=== PATIENT | female | born 1980 | race African-American/Black ===

== ENCOUNTER 2017-02-13 20:19 | Inpatient (IN) | payer OTHER ==
[2017-02-13 20:41] VITALS: BMI 21.6
--- NOTE | 2017-02-13 20:51 | HP ---
CIWA Score - CIWA Score Nausea/Vomitin Muscle Tremors: 3 Anxiety: 3 Agitation: 1-Slight > Activity Paroxysmal Sweats: 3 Orientation: 0-Oriented Tacttile Disturbances: 1-Very Mild Itch/Numbness Auditory Disturbances: 0-None Visual Disturbances: 0-None Headache: 1-Very Mild CIWA-Ar Total Score: 15 Admission ROS [facility] - HPI Chief Complaint: WITHDRAWAL SYMPTOMS Allergies/Adverse Reactions: Allergies Allergy/AdvReac Type Severity Reaction Status Date / Time Penicillins Allergy Verified 02/13/17 20:48 History of Present Illness: 36 Y.O. WOMAN WITH AN EXTENSIVE HISTORY OF ALCOHOL DEPENDENCE IS SEEKING DETOX. SHE REPORTS SHE COMPLETED DETOX SEVERAL YEARS AGO AT ANOTHER FACILITY AND DOES NOT HAVE A SIGNIFICANT PERIOD OF SOBRIETY. Exam Limitations: No Limitations - Ebola screening Have you traveled outside of the country in the last 21 days: No Have you had contact with anyone from an Ebola affected area: No Have you been sick,other than usual withdrawal symptoms: No Do you have a fever: No - Review of Systems Constitutional: Chills, Loss of Appetite EENT: reports: Blurred Vision, Double Vision, Tearing, Nose Congestion Respiratory: reports: Wheezing Cardiac: reports: No Symptoms Reported GI: reports: Nausea : reports: No Symptoms Reported Musculoskeletal: reports: Back Pain Integumentary: reports: Bruising Neuro: reports: Seizure, Tremors Endocrine: reports: No Symptoms Reported Hematology: reports: Anemia (YOLANDA) Psychiatric: reports: Orientated x3, Anxious, Depressed Other Systems: Reviewed and Negative Patient History - Patient Medical History Hx Anemia: Yes (YOLANDA ) Hx Asthma: Yes (ALBUTERAL ) Hx Chronic Obstructive Pulmonary Disease (COPD): No Hx Cancer: No Hx Cardiac Disorders: Yes (H/O PALPITATIONS ) Hx Congestive Heart Failure: No Hx Hypertension: Yes Hx Hypercholesterolemia: No Hx Pacemaker: No HX Cerebrovascular Accident: Yes (09/2016) Hx Seizures: Yes (H/O EPILEPTIC SZ: LAST SZ 09/2016) Hx Dementia: No Hx Diabetes: No Hx Gastrointestinal Disorders: Yes (GERD ) Hx Liver Disease: No Hx Genitourinary Disorders: No Hx Sexually Transmitted Disorders: No Hx Renal Disease (ESRD): No Hx Thyroid Disease: No Hx Human Immunodeficiency Virus (HIV): No Hx Hepatitis C: No Hx Depression: Yes Hx Suicide Attempt: No Hx Bipolar Disorder: Yes Hx Schizophrenia: No - Patient Surgical History Past Surgical History: No - PPD History Previous Implant?: Yes Documented Results: Negative w/o proof PPD to be Administered?: Yes - Reproductive History Patient is a Female of Child Bearing Age (11 -55 yrs old): Yes Last Menstrual Period: 01/16/17 Patient : No - Smoking Cessation Smoking history: Smoker current status UNK Have you smoked in the past 12 months: No Aproximately how many cigarettes per day: 5 Hx Chewing Tobacco Use: No Initiated information on smoking cessation: Yes 'Breaking Loose' booklet given: 02/13/17 - Substance & Tx. History Hx Alcohol Use: Yes Hx Substance Use: No Substance Use Type: Alcohol Hx Substance Use Treatment: Yes (DETOX SEVERAL YEARS AGO AT [facility]; REPORTED NO REHAB EVER) - Substances Abused Alcohol Route: Oral Frequency: Daily Amount used: 2 20OZ CAN OF BEER AND 1 PINT OF LIQUOR Age of first use: 14 Date of Last Use: 02/12/17 Family Disease History - Family Disease History Family Disease History: Diabetes: Father, CA: Grandparent, Mother (CERVICAL ) Admission Physical Exam [facility] - Vital Signs Vital Signs: Vital Signs - 24 hr 02/13/17 20:38 Temperature 97.5 F L Pulse Rate 77 Respiratory 18 Rate Blood Pressure 138/93 - Physical General Appearance: Yes: Sweating, Anxious HEENTM: Yes: Hearing grossly Normal, Normocephalic, Normal Voice Respiratory: Yes: No Respiratory Distress, No Accessory Muscle Use, Wheezing Neck: Yes: No masses,lesions,Nodules, Trachea in good position Breast: Yes: Breast Exam Deferred Cardiology: Yes: Regular Rhythm, Regular Rate Abdominal: Yes: Normal Bowel Sounds, Non Tender, Flat, Soft Genitourinary: Yes: Vaginal Discharge Back: Yes: Normal Inspection Musculoskeletal: Yes: full range of Motion, Gait Steady Extremities: Yes: Normal Capillary Refill, Normal Inspection, Normal Range of Motion, Non-Tender Neurological: Yes: Alert, Normal Mood/Affect, Normal Response Integumentary: Yes: Normal Color, Dry, Warm Lymphatic: Yes: Within Normal Limits - Diagnostic (1) Alcohol dependence with uncomplicated withdrawal Current Visit: Yes Status: Chronic (2) Seizure Current Visit: Yes Status: Chronic (3) Hypertension Current Visit: Yes Status: Chronic (4) Scabies Current Visit: Yes Status: Acute (5) Asthma Current Visit: Yes Status: Chronic (6) Nicotine dependence Current Visit: Yes Status: Chronic (7) BV (bacterial vaginosis) Current Visit: Yes Status: Acute Cleared for Admission [facility] - Detox or Rehab [facility] Level of Care: Medically Managed Detox Regimen/Protocol: Librium [facility] Breath Alcohol Content Breath Alcohol Content: 0 Urine Pregancy Test - Result Urine Test Results: Negative- NO Line Present Urine Drug Screen - Results Drug Screen Negative: No Urine Drug Screen Results: HUY-Cocaine, BZO-Benzodiazepines
[2017-02-13] MEDS ORDERED: NICOTINE POLACRILEX 2 MG GUM BC PRN (21:09)
[2017-02-13] MEDS ORDERED: MAGNESIUM HYDROX 2400MG/30ML ORAL SUSPENSION 30 ML CUP PO PRN (21:09)
[2017-02-13] MEDS ORDERED: chlordiazePOXIDE HCL 25 MG CAPSULE PO PRN (21:09)
[2017-02-13] MEDS ORDERED: P-EPHED 60MG/TRIPROLIDI 2.5MG TABLET PO PRN (21:09)
[2017-02-13] MEDS ORDERED: guaiFENesin/D-METHORPHAN HB 10 ML UNIT-DOSE CUPS PO PRN (21:09)
[2017-02-13] MEDS ORDERED: MENTHOL/PHENOL 1 EACH UD MM PRN (21:09)
[2017-02-13] MEDS ORDERED: hydrOXYzine PAMOATE 50 MG CAPSULE (FP) PO PRN (21:09)
[2017-02-13] MEDS ORDERED: MAG HYDROX/AL HYDROX/SIMETH 30 ML UNIT-DOSE CUP PO PRN (21:09)
[2017-02-13] MEDS ORDERED: LOPERAMIDE HCL 2 MG CAPSULE PO PRN (21:09)
[2017-02-13] MEDS ORDERED: MAGNESIUM CITRATE 300 ML BOTTLE PO PRN (21:09)
[2017-02-13] MEDS ORDERED: PERMETHRIN 5% TOPICAL CREAM 60 GM TUBE TP ONE (21:12)
[2017-02-13] MEDS: levETIRAcetam 500 MG TABLET (FP) PO SCH (22:41)
[2017-02-13] MEDS: chlordiazePOXIDE HCL 25 MG CAPSULE PO ONE ×2 (22:42)
[2017-02-13] MEDS: THIAMINE HCL 100 MG TABLET (FP) PO SCH (22:45)
[2017-02-13] MEDS: diphenhydrAMINE HCL 50 MG CAPSULE PO PRN (22:47)
[2017-02-13] MEDS: CLINDAMYCIN HCL 150 MG CAPSULE (FP) PO SCH (22:57)
[2017-02-13] MEDS: metroNIDAZOLE 0.75% VAGINAL GEL 70 GM TUBE VG SCH (22:59)
[2017-02-13] MEDS: chlordiazePOXIDE HCL 25 MG CAPSULE PO SCH (23:03)
[2017-02-14 00:40] LABS: URINE APPEARANCE CLOUDY; URINE BILIRUBIN NEGATIVE (NEGATIVE); URINE BLOOD NEGATIVE (NEGATIVE); URINE COLOR YELLOW; URINE GLUCOSE (UA) NEGATIVE (NEGATIVE); URINE KETONE NEGATIVE (NEGATIVE); URINE LEUK ESTERASE TRACE (NEGATIVE); URINE NITRITE NEGATIVE (NEGATIVE); URINE PROTEIN NEGATIVE (NEGATIVE); URINE UROBILINOGEN NEGATIVE mg/dL (0.2-1.0)
[2017-02-14 01:01] LABS: URINE MUCUS FEW; URINE RBC 3 /hpf (0-3); URINE WBC 6 /hpf (3-5)
[2017-02-14] MEDS: chlordiazePOXIDE HCL 25 MG CAPSULE PO SCH ×4 (06:02→22:27)
[2017-02-14] MEDS: CLINDAMYCIN HCL 150 MG CAPSULE (FP) PO SCH ×3 (06:03→22:23)
[2017-02-14] MEDS: IBUPROFEN 400 MG TABLET (FP) PO PRN ×2 (06:03→17:12)
--- NOTE | 2017-02-14 09:20 | EKG ---
Test Reason : Blood Pressure : / mmHG Vent. Rate : 074 BPM Atrial Rate : 074 BPM P-R Int : 150 ms QRS Dur : 088 ms QT Int : 430 ms P-R-T Axes : 030 030 -06 degrees QTc Int : 477 ms NORMAL SINUS RHYTHM SEPTAL INFARCT , AGE UNDETERMINED NON-SPECIFIC INTRA-VENTRICULAR CONDUCTION DELAY ABNORMAL ECG NO PREVIOUS ECGS AVAILABLE Confirmed by BENI PEARSON MD ([id number]) on 02/14/2017 9:19:48 AM Referred By: Confirmed By:BENI PEARSON MD
[2017-02-14 10:25] LABS: MCH 28.4 pg (25.7-33.7); MCHC 32.4 g/dl (32.0-36.0); MEAN CELL VOLUME 87.7 fl (80-96); PLATELET COUNT 209 K/MM3 (134-434); RDW 17.9 % (11.6-15.6)
[2017-02-14] MEDS: PRENATAL VITAMINS W/ FOLIC ACID TABLET (FP) PO SCH (10:56)
[2017-02-14] MEDS: levETIRAcetam 500 MG TABLET (FP) PO SCH ×2 (10:56→22:23)
[2017-02-14 11:01] LABS: ALBUMIN 3.4 g/dl (3.4-5.0); ALK PHOS 37 U/L (45-117); BILIRUBIN,TOTAL 1.5 mg/dL (0.2-1.0); CALCIUM 8.7 mg/dL (8.5-10.1); CO2 27 mmol/L (21-32); CREATININE 0.9 mg/dL (0.55-1.02); GLUCOSE,RANDOM 90 mg/dL (74-106); SGOT/AST 16 U/L (15-37); SGPT/ALT 20 U/L (12-78); TOT PROT 7.2 g/dl (6.4-8.2)
--- NOTE | 2017-02-14 11:21 | PN ---
[facility] CIWA - CIWA Score Nausea/Vomitin-No Nausea/No Vomiting Muscle Tremors: 4-Moderate,w/Arms Extend Anxiety: 3 Agitation: 4-Moderately Restless Paroxysmal Sweats: 3 Orientation: 0-Oriented Tacttile Disturbances: 0-None Auditory Disturbances: 0-None Visual Disturbances: 0-None Headache: 0-None Present CIWA-Ar Total Score: 14 BHS Progress Note (SOAP) Subjective: shakes sweats interrupted sleep agitation anxiety Objective: 02/14/17 11:18 Vital Signs Temperature 97.3 F L 02/14/17 10:00 Pulse Rate 97 H 02/14/17 10:00 Respiratory Rate 18 02/14/17 10:00 Blood Pressure 122/66 02/14/17 10:00 O2 Sat by Pulse Oximetry (%) Laboratory Tests 02/14/17 02/14/17 02/14/17 00:01 07:00 07:00 WBC 9.0 RBC 4.36 Hgb 12.4 Hct 38.2 MCV 87.7 MCH 28.4 MCHC 32.4 RDW 17.9 H Plt Count 209 MPV 10.0 Sodium 135 L Potassium 3.9 Chloride 101 Carbon Dioxide 27 BUN 12 Creatinine 0.9 Creat Clearance w eGFR > 60 Random Glucose 90 Calcium 8.7 Total Bilirubin 1.5 H AST 16 ALT 20 Alkaline Phosphatase 37 L Total Protein 7.2 Albumin 3.4 Urine Color Yellow Urine Appearance Cloudy Urine pH 6.0 Ur Specific [place] 1.025 Urine Protein Negative Urine Glucose (UA) Negative Urine Ketones Negative Urine Blood Negative Urine Nitrite Negative Urine Bilirubin Negative Urine Urobilinogen Negative Ur Leukocyte Esterase Trace Urine RBC 3 Urine WBC 6 Ur Epithelial Cells Few Urine Mucus Few awake/alert ambulating no acute distress Assessment: 02/14/17 11:20 withdrawal sx Plan: continue detox increase fluids
[2017-02-14 12:18] LABS: HIV 1 & 2 AB NEGATIVE; HIV 1 AGp24 NEGATIVE
[2017-02-14] MEDS: ACETAMINOPHEN 325 MG TABLET (FP) PO PRN ×3 (13:27→22:24)
--- NOTE | 2017-02-14 13:41 | CONSULT ---
[facility] Psychiatric Consult - Data Date of interview: 02/14/17 Admission source: [facility] Identifying data: Ptient refused psychiatric evaluation." I have fever.Icannot talk.Besides I don't have psychiatric problems.Nursing staff is made aware.
[2017-02-14] MEDS: THIAMINE HCL 100 MG TABLET (FP) PO SCH (22:23)
[2017-02-14] MEDS: metroNIDAZOLE 0.75% VAGINAL GEL 70 GM TUBE VG SCH (22:23)
[2017-02-15] MEDS: CLINDAMYCIN HCL 150 MG CAPSULE (FP) PO SCH ×3 (05:53→22:24)
[2017-02-15] MEDS: chlordiazePOXIDE HCL 25 MG CAPSULE PO SCH ×3 (05:54→17:41)
[2017-02-15] MEDS: levETIRAcetam 500 MG TABLET (FP) PO SCH ×2 (10:36→22:24)
[2017-02-15] MEDS: PRENATAL VITAMINS W/ FOLIC ACID TABLET (FP) PO SCH (10:36)
[2017-02-15] MEDS: ALBUTEROL SO4 6.7 GM HFA INHALER IH PRN ×2 (10:37→16:03)
--- NOTE | 2017-02-15 12:03 | PN ---
S CIWA - CIWA Score Nausea/Vomitin Muscle Tremors: 4-Moderate,w/Arms Extend Anxiety: 4-Mod. Anxious/Guarded Agitation: 4-Moderately Restless Paroxysmal Sweats: 3 Orientation: 0-Oriented Tacttile Disturbances: 0-None Auditory Disturbances: 1-Very Mild Visual Disturbances: 0-None Headache: 1-Very Mild CIWA-Ar Total Score: 20 BHS Progress Note (SOAP) Subjective: nausea, sweats, interrupted sleep, anxiety, tremors Objective: 02/15/17 12:02 Vital Signs - 8 hr 02/15/17 02/15/17 06:00 10:20 Temperature 98.1 F 97.7 F Pulse Rate 78 90 Respiratory 18 18 Rate Blood Pressure 114/71 106/78 Laboratory Tests 02/13/17 02/14/17 02/14/17 07:00 00:01 07:00 WBC 9.0 RBC 4.36 Hgb 12.4 Hct 38.2 MCV 87.7 MCH 28.4 MCHC 32.4 RDW 17.9 H Plt Count 209 MPV 10.0 Sodium Potassium Chloride Carbon Dioxide Anion Gap BUN Creatinine Creat Clearance w eGFR Random Glucose Calcium Total Bilirubin AST ALT Alkaline Phosphatase Total Protein Albumin Urine Color Yellow Urine Appearance Cloudy Urine pH 6.0 Ur Specific [place] 1.025 Urine Protein Negative Urine Glucose (UA) Negative Urine Ketones Negative Urine Blood Negative Urine Nitrite Negative Urine Bilirubin Negative Urine Urobilinogen Negative Ur Leukocyte Esterase Trace Urine RBC 3 Urine WBC 6 Ur Epithelial Cells Few Urine Mucus Few RPR Titer Hepatitis C Antibody 0.4 HIV 1&2 Antibody Screen HIV P24 Antigen 02/14/17 02/14/17 02/14/17 07:00 07:00 07:00 WBC RBC Hgb Hct MCV MCH MCHC RDW Plt Count MPV Sodium 135 L Potassium 3.9 Chloride 101 Carbon Dioxide 27 Anion Gap Y BUN 12 Creatinine 0.9 Creat Clearance w eGFR > 60 Random Glucose 90 Calcium 8.7 Total Bilirubin 1.5 H AST 16 ALT 20 Alkaline Phosphatase 37 L Total Protein 7.2 Albumin 3.4 Urine Color Urine Appearance Urine pH Ur Specific [place] Urine Protein Urine Glucose (UA) Urine Ketones Urine Blood Urine Nitrite Urine Bilirubin Urine Urobilinogen Ur Leukocyte Esterase Urine RBC Urine WBC Ur Epithelial Cells Urine Mucus RPR Titer Nonreactive Hepatitis C Antibody HIV 1&2 Antibody Screen Negative HIV P24 Antigen Negative Assessment: 02/15/17 12:03 withdrawal sx Plan: cont detox, fluids
[2017-02-15] MEDS: metroNIDAZOLE 0.75% VAGINAL GEL 70 GM TUBE VG SCH (22:24)
[2017-02-15] MEDS: chlordiazePOXIDE 5 MG CAPSULE PO SCH (22:24)
[2017-02-15] MEDS: THIAMINE HCL 100 MG TABLET (FP) PO SCH (22:24)
[2017-02-15] MEDS: diphenhydrAMINE HCL 50 MG CAPSULE PO PRN (22:25)
[2017-02-16] MEDS: CLINDAMYCIN HCL 150 MG CAPSULE (FP) PO SCH ×3 (05:34→22:44)
[2017-02-16] MEDS: chlordiazePOXIDE 5 MG CAPSULE PO SCH ×3 (05:34→17:58)
[2017-02-16] MEDS: PRENATAL VITAMINS W/ FOLIC ACID TABLET (FP) PO SCH (10:40)
[2017-02-16] MEDS: levETIRAcetam 500 MG TABLET (FP) PO SCH ×2 (10:40→22:44)
--- NOTE | 2017-02-16 10:40 | PN ---
BHS Progress Note (SOAP) Subjective: nause, sweats, interrupted sleep, anxiety, tremors Objective: 02/16/17 10:39 Vital Signs - 8 hr 02/16/17 02/16/17 03:30 06:29 Temperature 96.8 F L Pulse Rate 63 Respiratory 18 16 Rate Blood Pressure 97/64 Laboratory Tests 02/13/17 02/14/17 02/14/17 07:00 00:01 07:00 WBC 9.0 RBC 4.36 Hgb 12.4 Hct 38.2 MCV 87.7 MCH 28.4 MCHC 32.4 RDW 17.9 H Plt Count 209 MPV 10.0 Sodium Potassium Chloride Carbon Dioxide Anion Gap BUN Creatinine Creat Clearance w eGFR Random Glucose Calcium Total Bilirubin AST ALT Alkaline Phosphatase Total Protein Albumin Urine Color Yellow Urine Appearance Cloudy Urine pH 6.0 Ur Specific [place] 1.025 Urine Protein Negative Urine Glucose (UA) Negative Urine Ketones Negative Urine Blood Negative Urine Nitrite Negative Urine Bilirubin Negative Urine Urobilinogen Negative Ur Leukocyte Esterase Trace Urine RBC 3 Urine WBC 6 Ur Epithelial Cells Few Urine Mucus Few RPR Titer Hepatitis C Antibody 0.4 HIV 1&2 Antibody Screen HIV P24 Antigen 02/14/17 02/14/17 02/14/17 07:00 07:00 07:00 WBC RBC Hgb Hct MCV MCH MCHC RDW Plt Count MPV Sodium 135 L Potassium 3.9 Chloride 101 Carbon Dioxide 27 Anion Gap Y BUN 12 Creatinine 0.9 Creat Clearance w eGFR > 60 Random Glucose 90 Calcium 8.7 Total Bilirubin 1.5 H AST 16 ALT 20 Alkaline Phosphatase 37 L Total Protein 7.2 Albumin 3.4 Urine Color Urine Appearance Urine pH Ur Specific [place] Urine Protein Urine Glucose (UA) Urine Ketones Urine Blood Urine Nitrite Urine Bilirubin Urine Urobilinogen Ur Leukocyte Esterase Urine RBC Urine WBC Ur Epithelial Cells Urine Mucus RPR Titer Nonreactive Hepatitis C Antibody HIV 1&2 Antibody Screen Negative HIV P24 Antigen Negative Assessment: 02/16/17 10:40 withdrawal sx Plan: cont detox
[2017-02-16] MEDS: metroNIDAZOLE 0.75% VAGINAL GEL 70 GM TUBE VG SCH (22:43)
[2017-02-16] MEDS: chlordiazePOXIDE HCL 10 MG CAPSULE PO SCH (22:44)
[2017-02-16] MEDS: THIAMINE HCL 100 MG TABLET (FP) PO SCH (22:44)
[2017-02-17] MEDS: chlordiazePOXIDE HCL 10 MG CAPSULE PO SCH (05:54)
[2017-02-17] MEDS: CLINDAMYCIN HCL 150 MG CAPSULE (FP) PO SCH (05:54)
[2017-02-17 06:49] VITALS: BP 100/57; PULSE 72; TEMP 97
[2017-02-17] MEDS: PRENATAL VITAMINS W/ FOLIC ACID TABLET (FP) PO SCH (09:22)
[2017-02-17] MEDS: levETIRAcetam 500 MG TABLET (FP) PO SCH (09:22)
--- NOTE | 2017-02-17 09:37 | DS ---
[facility] Detox Discharge Summary Admission Date: 02/13/17 Discharge Date: 02/17/17 - History Present History: Alcohol Dependence Pertinent Past History: asthma, scabies, bacteerial vaginosis, seizures - Physical Exam Results Vital Signs: Vital Signs Temperature 97 F L 02/17/17 06:48 Pulse Rate 72 02/17/17 06:48 Respiratory Rate 18 02/17/17 06:48 Blood Pressure 100/57 02/17/17 06:48 O2 Sat by Pulse Oximetry (%) Laboratory Tests 02/13/17 02/14/17 02/14/17 07:00 00:01 07:00 WBC 9.0 RBC 4.36 Hgb 12.4 Hct 38.2 MCV 87.7 MCH 28.4 MCHC 32.4 RDW 17.9 H Plt Count 209 MPV 10.0 Sodium Potassium Chloride Carbon Dioxide Anion Gap BUN Creatinine Creat Clearance w eGFR Random Glucose Calcium Total Bilirubin AST ALT Alkaline Phosphatase Total Protein Albumin Urine Color Yellow Urine Appearance Cloudy Urine pH 6.0 Ur Specific [place] 1.025 Urine Protein Negative Urine Glucose (UA) Negative Urine Ketones Negative Urine Blood Negative Urine Nitrite Negative Urine Bilirubin Negative Urine Urobilinogen Negative Ur Leukocyte Esterase Trace Urine RBC 3 Urine WBC 6 Ur Epithelial Cells Few Urine Mucus Few RPR Titer Hepatitis C Antibody 0.4 HIV 1&2 Antibody Screen HIV P24 Antigen 02/14/17 02/14/17 02/14/17 07:00 07:00 07:00 WBC RBC Hgb Hct MCV MCH MCHC RDW Plt Count MPV Sodium 135 L Potassium 3.9 Chloride 101 Carbon Dioxide 27 Anion Gap Y BUN 12 Creatinine 0.9 Creat Clearance w eGFR > 60 Random Glucose 90 Calcium 8.7 Total Bilirubin 1.5 H AST 16 ALT 20 Alkaline Phosphatase 37 L Total Protein 7.2 Albumin 3.4 Urine Color Urine Appearance Urine pH Ur Specific [place] Urine Protein Urine Glucose (UA) Urine Ketones Urine Blood Urine Nitrite Urine Bilirubin Urine Urobilinogen Ur Leukocyte Esterase Urine RBC Urine WBC Ur Epithelial Cells Urine Mucus RPR Titer Nonreactive Hepatitis C Antibody HIV 1&2 Antibody Screen Negative HIV P24 Antigen Negative Pertinent Admission Physical Exam Findings: withdrawal sx - Treatment Hospital Course: Detox Protocol Followed, Detoxed Safely, Responded well, Discharged Condition Good, Rehab Referral Accepted Patient has Accepted a Rehab Referral to: Yes - Medication Discharge Medications: Ambulatory Orders Metronidazole 0.75% Gel [Metrogel 0.75% Gel -] 1 applic TP HS 02/13/17 Albuterol Sulfate Inhaler - [Ventolin HFA Inhaler -] 2 inh PO Q6H #1 inh Clindamycin [Cleocin -] 300 mg PO TID 7 Days MDD 3 02/17/17 Diphenhydramine [Benadryl Capsule -] 50 mg PO HSMR1 PRN #30 cap MDD 1 02/17/17 Levetiracetam [Keppra -] 500 mg PO BID #30 tab MDD 2 02/17/17 Permethrin 5% Topical Cream [Elimite -] 1 applic TP ONCE #1 tube MDD 1 02/17/17 - Diagnosis (1) BV (bacterial vaginosis) Current Visit: Yes Status: Acute (2) Scabies Current Visit: Yes Status: Acute (3) Alcohol dependence with uncomplicated withdrawal Current Visit: Yes Status: Chronic (4) Asthma Current Visit: Yes Status: Chronic Qualifiers: Asthma severity: mild intermittent (5) Nicotine dependence Current Visit: Yes Status: Chronic Qualifiers: Nicotine product type: cigarettes Substance use status: uncomplicated Qualified Code(s): F17.210 - Nicotine dependence, cigarettes, uncomplicated (6) Seizure Current Visit: Yes Status: Chronic - AMA Did Patient Leave Against Medical Advice: No
== END 2017-02-17 09:15 | disposition home or self-care (01) | DRG 775 ==
LOC: YASAS 20:19 → Y6N 21:10
PROVIDERS: ADMIT Internal Medicine Addiction Medicine; ATTEND Internal Medicine Addiction Medicine
PROC: HZ2ZZZZ Detoxification Services for Substance Abuse Treatment (ICD-10-PCS; principal; 2017-02-13)
DX: F10.230 Alcohol dependence with withdrawal, uncomplicated (principal); F17.210 Nicotine dependence, cigarettes, uncomplicated; I10 Essential (primary) hypertension; N76.0 Acute vaginitis; B96.89 Other specified bacterial agents as the cause of diseases classified elsewhere; B86 Scabies; D50.9 Iron deficiency anemia, unspecified; J45.20 Mild intermittent asthma, uncomplicated; G40.909 Epilepsy, unspecified, not intractable, without status epilepticus; Z86.73 Personal history of transient ischemic attack (TIA), and cerebral infarction without residual deficits; Z88.0 Allergy status to penicillin
CPT/HCPCS: 36415; 80053; 81003; 81015; 85027; 86593; 86803; 87389; 93005; 93010

== ENCOUNTER 2019-02-03 12:14 | Inpatient (IN) | payer OTHER ==
[2019-02-03 13:37] VITALS: BMI 23.3
--- NOTE | 2019-02-03 16:45 | HP ---
CIWA Score Nausea/Vomitin-Mild Nausea/No Vomiting Muscle Tremors: 4-Moderate,w/Arms Extend Anxiety: 2 Agitation: 0-Normal Activity Paroxysmal Sweats: No Perspiration Orientation: 0-Oriented Tacttile Disturbances: 3-Moderate Itch/Numb/Burn Auditory Disturbances: 0-None Visual Disturbances: 0-None Headache: 3-Moderate CIWA-Ar Total Score: 13 - Admission Criteria [facility] Guidelines: Admission for Medically Managed Detox: Requires at least one of the followin. CIWA greater than 12 2. Seizures within the past 24 hours 3. Delirium tremens within the past 24 hours 4. Hallucinations within the past 24 hours 5. Acute intervention needed for co occurring medical disorder 6. Acute intervention needed for co occurring psychiatric disorder 7. Severe withdrawal that cannot be handled at a lower level of care (continued vomiting, continued diarrhea, abnormal vital signs) requiring intravenous medication and/or fluids 8. Admission ROS [facility] Chief Complaint: detox from alcohol Allergies/Adverse Reactions: Allergies Allergy/AdvReac Type Severity Reaction Status Date / Time Penicillins Allergy Verified 02/03/19 13:27 History of Present Illness: Ms. Bhagat is a 38yo female with alcohol use disorder, cocaine use disorder, and seizures who presents for detox from alcohol. Pt reports drinking 1 pint of liquor daily for 16 years. Her last drink was yesterday afternoon. She reports hx of seizures (has seizure disorder) but denies hx of blackouts. She states her longest period of sobriety was 9 months and she relapsed in February 2018. She also smokes 3 bags/day of cocaine for the last 4 years. Last use was yesterday. She smokes 2 cigarettes/day. PMH: alcohol use disorder, cocaine use disorder, and seizures meds: keppra allergies: PCN- rash surgical hx: none family hx: mom-cancer, denies family hx of substance use disorders social: lives alone in [facility] in [place]; currently unemployed - Ebola screening Have you traveled outside of the country in the last 21 days: No Have you had contact with anyone from an Ebola affected area: No - Review of Systems Constitutional: Chills EENT: reports: No Symptoms Reported Respiratory: denies: Cough, Shortness of Breath Cardiac: denies: Chest Pain GI: reports: Diarrhea. denies: Nausea, Vomiting : reports: No Symptoms Reported Musculoskeletal: reports: No Symptoms Reported Integumentary: reports: Rash Neuro: denies: Headache, Dizziness Hematology: reports: No Symptoms Reported Psychiatric: reports: Judgement Intact, Mood/Affect Appropiate, Orientated x3 Patient History - Patient Medical History Hx Anemia: Yes (YOLANDA ) Hx Asthma: Yes (ALBUTERAL ) Hx Chronic Obstructive Pulmonary Disease (COPD): No Hx Cancer: No Hx Cardiac Disorders: Yes (H/O PALPITATIONS ) Hx Congestive Heart Failure: No Hx Hypertension: Yes Hx Hypercholesterolemia: No Hx Pacemaker: No HX Cerebrovascular Accident: Yes (09/2016) Hx Seizures: Yes (H/O EPILEPTIC SZ: LAST SZ 09/2016) Hx Dementia: No Hx Diabetes: No Hx Gastrointestinal Disorders: Yes (GERD ) Hx Liver Disease: No Hx Genitourinary Disorders: No Hx Sexually Transmitted Disorders: No Hx Renal Disease (ESRD): No Hx Thyroid Disease: No Hx Human Immunodeficiency Virus (HIV): No Hx Hepatitis C: No Hx Depression: Yes Hx Suicide Attempt: No Hx Bipolar Disorder: Yes Hx Schizophrenia: No - Patient Surgical History Past Surgical History: No Hx Neurologic Surgery: No Hx Cataract Extraction: No Hx Cardiac Surgery: No Hx Lung Surgery: No Hx Breast Surgery: No Hx Breast Biopsy: No Hx Abdominal Surgery: No Hx Appendectomy: No Hx Cholecystectomy: No Hx Genitourinary Surgery: No Hx Section: No Hx Orthopedic Surgery: No Anesthesia Reaction: No - PPD History Date: 02/15/17 - Reproductive History Last Menstrual Period: 01/16/17 - Smoking Cessation Smoking history: Current every day smoker Have you smoked in the past 12 months: Yes Aproximately how many cigarettes per day: 2 Hx Chewing Tobacco Use: No Initiated information on smoking cessation: Yes 'Breaking Loose' booklet given: 02/03/19 - Substances abused Alcohol Substance route: Oral Frequency: Daily Amount used: 3 BOTTLES OF VODKA, 2 CANS OF BEER Age of first use: 14 Date of last use: 02/02/19 Cocaine Substance route: Smoking Frequency: Daily Amount used: 3 BAGS Age of first use: 34 Date of last use: 02/02/19 Family Disease History - Family Disease History Family Disease History: Diabetes: Father, CA: Grandparent, Mother (CERVICAL ) Admission Physical Exam [facility] - Vital Signs Vital Signs: Vital Signs - 24 hr 02/03/19 13:23 Temperature 98.2 F Pulse Rate 80 Respiratory 18 Rate Blood Pressure 137/92 - Physical General Appearance: Yes: No Apparent Distress HEENTM: Yes: Hearing grossly Normal, Normocephalic, CARLOS Respiratory: Yes: Lungs Clear, No Respiratory Distress Neck: Yes: Within Normal Limits Cardiology: Yes: Regular Rhythm, Regular Rate. 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 NML intact, Fully Oriented, Alert, Motor Strength 5/5, Normal Mood/Affect Integumentary: Yes: Rash (extremities have pinpoint rashes with various stages of healing, not on trunk, not inbetween fingers or toes) - Diagnostic (1) Cocaine use disorder Current Visit: Yes Status: Chronic (2) Alcohol dependence with uncomplicated withdrawal Current Visit: Yes Status: Chronic (3) Seizure Current Visit: Yes Status: Chronic Cleared for Admission S - Detox or Rehab [facility] Level of Care: Medically Managed Breathalyzer - Breathalyzer Breathalyzer: 0 Urine Drug Screen - Test Device Lot number: [id number] Expiration date: 11/13/20 - Control Is test valid?: Yes - Results Drug screen NEGATIVE: Yes Urine drug screen results: HUY-Cocaine Inpatient Rehab Admission - Rehab Decision to Admit Inpatient rehab admission?: No
--- NOTE | 2019-02-03 16:50 | PN ---
Teaching Attending Note Name of Resident: Queenie Mas ATTENDING PHYSICIAN STATEMENT I saw and evaluated the patient. I reviewed the resident's note and discussed the case with the resident. I agree with the resident's findings and plan as documented. SUBJECTIVE: 38 yo here for alcohol use disorder and cocaine use disorder, using alcohol= 1 pint/day, h/o seizure. Last detox here 2 years ago; smokes 3 bags of cocaine/day. OBJECTIVE: Vital Signs - 24 hr 02/03/19 13:23 Temperature 98.2 F Pulse Rate 80 Respiratory 18 Rate Blood Pressure 137/92 tremulous alert and oriented ASSESSMENT AND PLAN: AUD- start librium detox keppra for seizures
[2019-02-03] MEDS ORDERED: MELATONIN 5 MG TABLETS PO PRN (17:05)
[2019-02-03] MEDS ORDERED: ACETAMINOPHEN 325 MG TABLET (FP) PO PRN ×2 (17:05)
[2019-02-03] MEDS ORDERED: chlordiazePOXIDE HCL 25 MG CAPSULE PO PRN (17:05)
[2019-02-03] MEDS ORDERED: MAG HYDROX/AL HYDROX/SIMETH 30 ML UNIT-DOSE CUP PO PRN (17:05)
[2019-02-03] MEDS ORDERED: ONDANSETRON *ODT* 4 MG TABLET SL PRN (17:05)
[2019-02-03] MEDS ORDERED: NICOTINE POLACRILEX 2 MG GUM BUC PRN (17:05)
[2019-02-03] MEDS ORDERED: MAGNESIUM CITRATE 300 ML BOTTLE PO PRN (17:05)
[2019-02-03] MEDS ORDERED: METHOCARBAMOL 500 MG TABLET PO PRN (17:05)
[2019-02-03] MEDS ORDERED: hydrOXYzine PAMOATE 25 MG CAPSULE (FP) PO PRN (17:05)
[2019-02-03] MEDS ORDERED: MAGNESIUM HYDROX 2400MG/30ML ORAL SUSPENSION 30 ML CUP PO PRN (17:05)
[2019-02-03] MEDS ORDERED: COLLOIDAL OATMEAL 1 BAR EACH TP PRN (17:09)
[2019-02-03] MEDS ORDERED: chlordiazePOXIDE HCL 25 MG CAPSULE PO ONE (17:45)
[2019-02-03] MEDS ORDERED: levETIRAcetam 500 MG TABLET (FP) PO SCH (22:00)
[2019-02-03] MEDS: chlordiazePOXIDE HCL 25 MG CAPSULE PO SCH (22:16)
[2019-02-03] MEDS: levETIRAcetam 500 MG TABLET (FP) PO SCH (22:16)
[2019-02-03] MEDS: THIAMINE HCL 100 MG TABLET (FP) PO SCH (22:16)
[2019-02-04] MEDS: chlordiazePOXIDE HCL 25 MG CAPSULE PO SCH ×4 (05:59→22:27)
[2019-02-04] MEDS: BISMUTH SUBSALICYLATE 524 MG/30 ML UD PO PRN ×2 (05:59→16:59)
[2019-02-04] MEDS: levETIRAcetam 500 MG TABLET (FP) PO SCH ×2 (10:31→22:27)
[2019-02-04] MEDS: HYDROCORTISONE 1% TOPICAL CREAM 30 GM TUBE TP PRN ×2 (10:31→22:27)
[2019-02-04] MEDS: PRENATAL VITAMINS W/ FOLIC ACID TABLET (FP) PO SCH (10:31)
[2019-02-04 12:48] LABS: BILIRUBIN,TOTAL 0.5 mg/dL (0.2-1); BLOOD UREA NITROGEN 11.8 mg/dL (7-18); CALCIUM 8.5 mg/dL (8.5-10.1); CREATININE 0.9 mg/dL (0.55-1.3); POTASSIUM 3.8 mmol/L (3.5-5.1); TOT PROT 6.5 g/dl (6.4-8.2)
[2019-02-04 13:26] LABS: HEMATOCRIT 37.5 % (32.4-45.2); HEMOGLOBIN 12.2 GM/dL (10.7-15.3); MCH 29.8 pg (25.7-33.7); MCHC 32.7 g/dl (32.0-36.0); MEAN CELL VOLUME 91.3 fl (80-96); MEAN PLT VOLUME 10.5 fl (7.5-11.1); PLATELET COUNT 178 K/MM3 (134-434); RBC 4.11 M/mm3 (3.60-5.2); RDW 15.9 % (11.6-15.6); WHITE BLOOD COUNT 2.9 K/mm3 (4.0-10.0)
--- NOTE | 2019-02-04 13:55 | PN ---
[facility] CIWA - CIWA Score Nausea/Vomitin-No Nausea/No Vomiting Muscle Tremors: 3 Anxiety: 4-Mod. Anxious/Guarded Agitation: 2 Paroxysmal Sweats: 1-Minimal Palms Moist Orientation: 0-Oriented Tacttile Disturbances: 1-Very Mild Itch/Numbness Auditory Disturbances: 2-Mild Harshness/Frighten Visual Disturbances: 0-None Headache: 0-None Present CIWA-Ar Total Score: 13 S Progress Note (SOAP) Subjective: Anxious, Tremors, Stomach Cramping. Objective: PATIENT A & O X 3. IN NO ACUTE DISTRESS. 02/04/19 13:52 Vital Signs Temperature 97.0 F L 02/04/19 13:44 Pulse Rate 72 02/04/19 13:44 Respiratory Rate 18 02/04/19 13:44 Blood Pressure 126/95 02/04/19 13:44 O2 Sat by Pulse Oximetry (%) Laboratory Tests 02/04/19 02/04/19 07:30 07:30 WBC 2.9 L RBC 4.11 Hgb 12.2 Hct 37.5 MCV 91.3 MCH 29.8 MCHC 32.7 RDW 15.9 H D Plt Count 178 MPV 10.5 Sodium 142 Potassium 3.8 Chloride 105 Carbon Dioxide 27 Anion Gap 10 BUN 11.8 Creatinine 0.9 Est GFR (CKD-EPI)AfAm 92.70 Est GFR (CKD-EPI)NonAf 79.98 Random Glucose 96 Calcium 8.5 Total Bilirubin 0.5 AST 27 ALT 28 Alkaline Phosphatase 34 L Total Protein 6.5 Albumin 3.0 L TSH 1.19 LABS NOTED. ADMISSION RPR RESULT PENDING. 02/04/19 13:56 Assessment: 02/04/19 13:55 WITHDRAWAL SYMPTOMS. LEUKOPENIA. 02/04/19 13:56 Plan: CONTINUE DETOX.
[2019-02-04] MEDS: THIAMINE HCL 100 MG TABLET (FP) PO SCH (22:27)
[2019-02-04] MEDS ORDERED: ALBUTEROL SO4 8 GM HFA INHALER IH PRN (23:02)
[2019-02-05] MEDS: chlordiazePOXIDE HCL 25 MG CAPSULE PO SCH ×4 (05:20→22:16)
[2019-02-05] MEDS: levETIRAcetam 500 MG TABLET (FP) PO SCH ×2 (10:08→22:16)
[2019-02-05] MEDS: PRENATAL VITAMINS W/ FOLIC ACID TABLET (FP) PO SCH (10:08)
--- NOTE | 2019-02-05 14:07 | PN ---
S CIWA - CIWA Score Nausea/Vomitin (Stomach Cramping.) Muscle Tremors: None Anxiety: 3 Agitation: 2 Paroxysmal Sweats: No Perspiration Orientation: 2-Disoriented Date<2 days Tacttile Disturbances: 1-Very Mild Itch/Numbness Auditory Disturbances: 0-None Visual Disturbances: 2-Mild Sensitivity Headache: 0-None Present CIWA-Ar Total Score: 12 BHS Progress Note (SOAP) Subjective: Anxious, Fatigue, Stomach Cramping. Objective: PATIENT A & O X 2 (UNCERTAIN ABOUT CURRENT DAY / DATE). PATIENT OBSERVED AMBULATING ON UNIT UNASSISTED. IN NO ACUTE DISTRESS. 02/05/19 14:05 Vital Signs Temperature 97.4 F L 02/05/19 09:25 Pulse Rate 77 02/05/19 14:02 Respiratory Rate 16 02/05/19 14:02 Blood Pressure 115/84 02/05/19 14:02 O2 Sat by Pulse Oximetry (%) Laboratory Tests 02/03/19 02/04/19 02/04/19 15:18 07:30 07:30 WBC 2.9 L RBC 4.11 Hgb 12.2 Hct 37.5 MCV 91.3 MCH 29.8 MCHC 32.7 RDW 15.9 H D Plt Count 178 MPV 10.5 Sodium 142 Potassium 3.8 Chloride 105 Carbon Dioxide 27 Anion Gap 10 BUN 11.8 Creatinine 0.9 Est GFR (CKD-EPI)AfAm 92.70 Est GFR (CKD-EPI)NonAf 79.98 Random Glucose 96 Calcium 8.5 Total Bilirubin 0.5 AST 27 ALT 28 Alkaline Phosphatase 34 L Total Protein 6.5 Albumin 3.0 L TSH 1.19 POC Urine HCG, Qual Negative RPR Titer 02/04/19 07:30 WBC RBC Hgb Hct MCV MCH MCHC RDW Plt Count MPV Sodium Potassium Chloride Carbon Dioxide Anion Gap BUN Creatinine Est GFR (CKD-EPI)AfAm Est GFR (CKD-EPI)NonAf Random Glucose Calcium Total Bilirubin AST ALT Alkaline Phosphatase Total Protein Albumin TSH POC Urine HCG, Qual RPR Titer Nonreactive LABS NOTED. Assessment: 02/05/19 14:06 WITHDRAWAL SYMPTOMS. LEUKOPENIA. Plan: CONTINUE DETOX.
[2019-02-05] MEDS: MENTHOL/PHENOL 1 EACH UD MM PRN (17:37)
[2019-02-05] MEDS: THIAMINE HCL 100 MG TABLET (FP) PO SCH (22:16)
[2019-02-06] MEDS ORDERED: chlordiazePOXIDE HCL 10 MG CAPSULE PO PRN
[2019-02-06] MEDS: chlordiazePOXIDE HCL 10 MG CAPSULE PO SCH ×4 (05:57→22:12)
[2019-02-06] MEDS: levETIRAcetam 500 MG TABLET (FP) PO SCH ×2 (10:31→22:12)
[2019-02-06] MEDS: PRENATAL VITAMINS W/ FOLIC ACID TABLET (FP) PO SCH (10:31)
--- NOTE | 2019-02-06 13:42 | PN ---
S CIWA - CIWA Score Nausea/Vomitin-Mild Nausea/No Vomiting Muscle Tremors: None Anxiety: 3 Agitation: 1-Slight > Activity Paroxysmal Sweats: No Perspiration Orientation: 0-Oriented Tacttile Disturbances: 1-Very Mild Itch/Numbness Auditory Disturbances: 0-None Visual Disturbances: 2-Mild Sensitivity Headache: 0-None Present CIWA-Ar Total Score: 8 BHS Progress Note (SOAP) Subjective: Anxious, Fatigue. Objective: PATIENT A & O X 3. IN NO ACUTE DISTRESS. 02/06/19 13:43 Vital Signs Temperature 97.6 F 02/06/19 13:19 Pulse Rate 78 02/06/19 13:19 Respiratory Rate 16 02/06/19 13:19 Blood Pressure 125/87 02/06/19 13:19 O2 Sat by Pulse Oximetry (%) Laboratory Tests 02/03/19 02/04/19 02/04/19 15:18 07:30 07:30 WBC 2.9 L RBC 4.11 Hgb 12.2 Hct 37.5 MCV 91.3 MCH 29.8 MCHC 32.7 RDW 15.9 H D Plt Count 178 MPV 10.5 Sodium 142 Potassium 3.8 Chloride 105 Carbon Dioxide 27 Anion Gap 10 BUN 11.8 Creatinine 0.9 Est GFR (CKD-EPI)AfAm 92.70 Est GFR (CKD-EPI)NonAf 79.98 Random Glucose 96 Calcium 8.5 Total Bilirubin 0.5 AST 27 ALT 28 Alkaline Phosphatase 34 L Total Protein 6.5 Albumin 3.0 L TSH 1.19 POC Urine HCG, Qual Negative RPR Titer 02/04/19 07:30 WBC RBC Hgb Hct MCV MCH MCHC RDW Plt Count MPV Sodium Potassium Chloride Carbon Dioxide Anion Gap BUN Creatinine Est GFR (CKD-EPI)AfAm Est GFR (CKD-EPI)NonAf Random Glucose Calcium Total Bilirubin AST ALT Alkaline Phosphatase Total Protein Albumin TSH POC Urine HCG, Qual RPR Titer Nonreactive LABS NOTED. Assessment: 02/06/19 13:43 WITHDRAWAL SYMPTOMS. LEUKOPENIA. 02/06/19 13:43 Plan: CONTINUE DETOX. ENCOURAGE AMBULATION.
[2019-02-06] MEDS ORDERED: ALBUTEROL SO4 8 GM HFA INHALER IH PRN (14:51)
[2019-02-06] MEDS: MENTHOL/PHENOL 1 EACH UD MM PRN (17:46)
[2019-02-06] MEDS: THIAMINE HCL 100 MG TABLET (FP) PO SCH (22:12)
[2019-02-06] MEDS ORDERED: ALBUTEROL SO4 8 GM HFA INHALER IH ONE (22:14)
[2019-02-07] MEDS: chlordiazePOXIDE HCL 10 MG CAPSULE PO SCH ×2 (06:00→17:58)
[2019-02-07] MEDS: levETIRAcetam 500 MG TABLET (FP) PO SCH ×2 (10:12→22:13)
[2019-02-07] MEDS: PRENATAL VITAMINS W/ FOLIC ACID TABLET (FP) PO SCH (10:12)
--- NOTE | 2019-02-07 10:15 | PN ---
S CIWA - CIWA Score Nausea/Vomitin-No Nausea/No Vomiting Muscle Tremors: 2 Anxiety: 1-Mildly Anxious Agitation: 1-Slight > Activity Paroxysmal Sweats: No Perspiration Orientation: 0-Oriented Tacttile Disturbances: 0-None Auditory Disturbances: 0-None Visual Disturbances: 0-None Headache: 0-None Present CIWA-Ar Total Score: 4 BHS Progress Note (SOAP) Subjective: 38 years old female admitted on 02/03/19 for acute alcohol withdrawal sx management doing well with librum detox regimen history of seizure no signs and symptoms of seizure treated with keppra 500 mg po bid asthma treated with ventolin prn no wheezing no shortness of breath Objective: 02/07/19 10:17 Vital Signs Temperature 98.7 F 02/07/19 09:16 Pulse Rate 83 02/07/19 09:16 Respiratory Rate 18 02/07/19 09:16 Blood Pressure 117/85 02/07/19 09:16 O2 Sat by Pulse Oximetry (%) Laboratory Last Values WBC 2.9 K/mm3 (4.0-10.0) L 02/04/19 07:30 RBC 4.11 M/mm3 (3.60-5.2) 02/04/19 07:30 Hgb 12.2 GM/dL (10.7-15.3) 02/04/19 07:30 Hct 37.5 % (32.4-45.2) 02/04/19 07:30 MCV 91.3 fl (80-96) 02/04/19 07:30 MCH 29.8 pg (25.7-33.7) 02/04/19 07:30 MCHC 32.7 g/dl (32.0-36.0) 02/04/19 07:30 RDW 15.9 % (11.6-15.6) H D 02/04/19 07:30 Plt Count 178 K/MM3 (134-434) 02/04/19 07:30 MPV 10.5 fl (7.5-11.1) 02/04/19 07:30 Sodium 142 mmol/L (136-145) 02/04/19 07:30 Potassium 3.8 mmol/L (3.5-5.1) 02/04/19 07:30 Chloride 105 mmol/L (98-107) 02/04/19 07:30 Carbon Dioxide 27 mmol/L (21-32) 02/04/19 07:30 Anion Gap 10 MMOL/L (8-16) 02/04/19 07:30 BUN 11.8 mg/dL (7-18) 02/04/19 07:30 Creatinine 0.9 mg/dL (0.55-1.3) 02/04/19 07:30 Est GFR (CKD-EPI)AfAm 92.70 02/04/19 07:30 Est GFR (CKD-EPI)NonAf 79.98 02/04/19 07:30 Random Glucose 96 mg/dL (74-106) 02/04/19 07:30 Calcium 8.5 mg/dL (8.5-10.1) 02/04/19 07:30 Total Bilirubin 0.5 mg/dL (0.2-1) 02/04/19 07:30 AST 27 U/L (15-37) 02/04/19 07:30 ALT 28 U/L (13-61) 02/04/19 07:30 Alkaline Phosphatase 34 U/L (45-117) L 02/04/19 07:30 Total Protein 6.5 g/dl (6.4-8.2) 02/04/19 07:30 Albumin 3.0 g/dl (3.4-5.0) L 02/04/19 07:30 TSH 1.19 uIU/ml (0.358-3.74) 02/04/19 07:30 POC Urine HCG, Qual Negative 02/03/19 15:18 RPR Titer Nonreactive (NONREACTIVE) 02/04/19 07:30 lab noted low wbc ambulating on hallway social with peers 02/07/19 10:20 Assessment: 02/07/19 10:20 alcohol withdrawal sx encourage follow up with aftercare appointment with lab resutl for low cbc follow up Plan: continue librium detox regimen patient agrees returning to neurologist for seizure monitoring
[2019-02-07] MEDS: THIAMINE HCL 100 MG TABLET (FP) PO SCH (22:14)
[2019-02-07] MEDS: HYDROCORTISONE 1% TOPICAL CREAM 30 GM TUBE TP PRN (22:14)
[2019-02-07] MEDS: IBUPROFEN 400 MG TABLET (FP) PO PRN (22:15)
[2019-02-08] MEDS: IBUPROFEN 400 MG TABLET (FP) PO PRN ×2 (04:08→10:15)
[2019-02-08] MEDS ORDERED: chlordiazePOXIDE HCL 10 MG CAPSULE PO ONE (05:00)
[2019-02-08 09:18] VITALS: BP 131/99; PULSE 85; TEMP 98.3
[2019-02-08] MEDS: levETIRAcetam 500 MG TABLET (FP) PO SCH (10:15)
[2019-02-08] MEDS: PRENATAL VITAMINS W/ FOLIC ACID TABLET (FP) PO SCH (10:15)
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
== END 2019-02-08 12:21 | disposition other institution (70) | DRG 774 ==
LOC: YASAS 12:14 → Y3N 17:20
PROVIDERS: ADMIT Surgery; ATTEND Surgery
PROC: HZ2ZZZZ Detoxification Services for Substance Abuse Treatment (ICD-10-PCS; principal; 2019-02-03)
DX: F10.230 Alcohol dependence with withdrawal, uncomplicated (principal); F14.20 Cocaine dependence, uncomplicated; F17.213 Nicotine dependence, cigarettes, with withdrawal; F31.9 Bipolar disorder, unspecified; J45.22 Mild intermittent asthma with status asthmaticus; D50.9 Iron deficiency anemia, unspecified; D72.819 Decreased white blood cell count, unspecified; I10 Essential (primary) hypertension; G40.909 Epilepsy, unspecified, not intractable, without status epilepticus; R21 Rash and other nonspecific skin eruption
CPT/HCPCS: 36415; 80053; 81025; 84443; 85027; 86593

== ENCOUNTER 2019-02-08 12:02 | Inpatient (IN) | payer OTHER ==
[2019-02-08] MEDS ORDERED: guaiFENesin 200 MG/10 ML 10 ML UNIT-DOSE CUPS PO PRN (14:18)
[2019-02-08] MEDS ORDERED: LOPERAMIDE HCL 2 MG CAPSULE PO PRN (14:18)
[2019-02-08] MEDS ORDERED: P-EPHED 60MG/TRIPROLIDI 2.5MG TABLET PO PRN (14:18)
[2019-02-08] MEDS ORDERED: MAGNESIUM CITRATE 300 ML BOTTLE PO PRN (14:18)
[2019-02-08] MEDS ORDERED: MAGNESIUM HYDROX 2400MG/30ML ORAL SUSPENSION 30 ML CUP PO PRN (14:18)
--- NOTE | 2019-02-08 14:18 | HP ---
[facility] Rehab Assess/Revision - Admission History Admitted to Rehab from: [facility] Date of Admission to Rehab: 02/08/19 - Vital signs Vital Signs: Vital Signs Period Temp Pulse Resp BP Sys/Barber Pulse Ox Last 24 Hr 97.1 F 80 18 125/94 - Findings Detox History & Physical reviewed: Yes Concur with findings: Yes Comments/Additional Findings: transferred from detox to rehab admission as per protocol Inpatient Rehab Admission - Rehab Decision to Admit Inpatient rehab admission?: Yes - Initial Determination Are CD services needed?: Yes Free of communicable disease: Yes Not in need of hospitalization: Yes - Rehab Admission Criteria Previous failed treatment: Yes Poor recovery environment: Yes Comorbidities: Yes Lacks judgement: No Patient is meeting Inpatient Rehab admission criteria:: Yes
[2019-02-08] MEDS ORDERED: PNEUMOC 13-VAL CONJ-DIP CRM/PF 0.5 ML DISP.SYRIN IM ONE (15:15)
[2019-02-08 17:22] LABS: HEMATOCRIT 38.6 % (32.4-45.2); HEMOGLOBIN 12.5 GM/dL (10.7-15.3); MCH 29.8 pg (25.7-33.7); MCHC 32.4 g/dl (32.0-36.0); MEAN CELL VOLUME 91.9 fl (80-96); MEAN PLT VOLUME 10.7 fl (7.5-11.1); PLATELET COUNT 200 K/MM3 (134-434); RDW 15.6 % (11.6-15.6); WHITE BLOOD COUNT 3.6 K/mm3 (4.0-10.0)
[2019-02-08] MEDS ORDERED: PT OWN MED DRAWER 7, Y5N ONE ×2 (20:32→23:10)
[2019-02-08] MEDS: HYDROCORTISONE 1% TOPICAL CREAM 30 GM TUBE TP SCH (22:09)
[2019-02-08] MEDS: MELATONIN 5 MG TABLETS PO PRN (22:09)
[2019-02-08] MEDS: THIAMINE HCL 100 MG TABLET (FP) PO SCH (22:09)
[2019-02-08] MEDS: levETIRAcetam 500 MG TABLET (FP) PO SCH (22:09)
[2019-02-09] MEDS: HYDROCORTISONE 1% TOPICAL CREAM 30 GM TUBE TP SCH ×3 (07:00→21:46)
[2019-02-09] MEDS: levETIRAcetam 500 MG TABLET (FP) PO SCH ×2 (10:14→21:45)
[2019-02-09] MEDS: PRENATAL VITAMINS W/ FOLIC ACID TABLET (FP) PO SCH (10:14)
[2019-02-09] MEDS: ACETAMINOPHEN 325 MG TABLET (FP) PO PRN ×2 (10:14→17:25)
[2019-02-09] MEDS ORDERED: PNEUMOCOCCAL 23 VACCINE 0.5 ML VIAL IM ONE (12:00)
[2019-02-09] MEDS: COLLOIDAL OATMEAL 1 BAR EACH TP PRN (12:34)
[2019-02-09] MEDS ORDERED: PT OWN MED DRAWER 7, Y5N ONE (13:24)
[2019-02-09] MEDS: IBUPROFEN 400 MG TABLET (FP) PO PRN (19:35)
[2019-02-09] MEDS: MELATONIN 5 MG TABLETS PO PRN (21:45)
[2019-02-09] MEDS: THIAMINE HCL 100 MG TABLET (FP) PO SCH (21:45)
[2019-02-10] MEDS: HYDROCORTISONE 1% TOPICAL CREAM 30 GM TUBE TP SCH ×3 (07:00→21:31)
[2019-02-10] MEDS: ACETAMINOPHEN 325 MG TABLET (FP) PO PRN ×2 (07:01→21:30)
[2019-02-10] MEDS: levETIRAcetam 500 MG TABLET (FP) PO SCH ×2 (09:17→21:30)
[2019-02-10] MEDS: PRENATAL VITAMINS W/ FOLIC ACID TABLET (FP) PO SCH (09:17)
[2019-02-10] MEDS: IBUPROFEN 400 MG TABLET (FP) PO PRN ×2 (09:18→16:38)
[2019-02-10 13:18] LABS: URINE APPEARANCE CLEAR; URINE BILIRUBIN NEGATIVE (NEGATIVE); URINE COLOR YELLOW; URINE GLUCOSE (UA) NEGATIVE (NEGATIVE); URINE KETONE NEGATIVE (NEGATIVE); URINE LEUK ESTERASE NEGATIVE (NEGATIVE); URINE NITRITE NEGATIVE (NEGATIVE); URINE PROTEIN NEGATIVE (NEGATIVE); URINE UROBILINOGEN 0.2 mg/dL (0.2-1.0)
[2019-02-10] MEDS: THIAMINE HCL 100 MG TABLET (FP) PO SCH (21:30)
[2019-02-10] MEDS: MELATONIN 5 MG TABLETS PO PRN (21:31)
[2019-02-11] MEDS: HYDROCORTISONE 1% TOPICAL CREAM 30 GM TUBE TP SCH ×3 (06:30→21:41)
[2019-02-11] MEDS: levETIRAcetam 500 MG TABLET (FP) PO SCH ×2 (10:15→21:40)
[2019-02-11] MEDS: PRENATAL VITAMINS W/ FOLIC ACID TABLET (FP) PO SCH (10:15)
[2019-02-11] MEDS: ACETAMINOPHEN 325 MG TABLET (FP) PO PRN ×2 (10:16→21:42)
[2019-02-11] MEDS ORDERED: PT OWN MED DRAWER 7, Y5N ONE (12:44)
[2019-02-11] MEDS: IBUPROFEN 400 MG TABLET (FP) PO PRN (18:17)
[2019-02-11] MEDS: MELATONIN 5 MG TABLETS PO PRN (21:40)
[2019-02-11] MEDS: THIAMINE HCL 100 MG TABLET (FP) PO SCH (21:40)
[2019-02-12] MEDS: HYDROCORTISONE 1% TOPICAL CREAM 30 GM TUBE TP SCH ×3 (06:57→21:28)
[2019-02-12] MEDS ORDERED: PT OWN MED DRAWER 7, Y5N ONE ×2 (09:02→16:41)
[2019-02-12] MEDS: ACETAMINOPHEN 325 MG TABLET (FP) PO PRN ×2 (09:04→17:11)
[2019-02-12] MEDS: levETIRAcetam 500 MG TABLET (FP) PO SCH ×2 (09:05→21:27)
[2019-02-12] MEDS: BENZOCAINE 20 % GEL TUBE MM PRN ×2 (09:05→16:41)
[2019-02-12] MEDS: PRENATAL VITAMINS W/ FOLIC ACID TABLET (FP) PO SCH (09:05)
[2019-02-12] MEDS: ALBUTEROL SO4 8 GM HFA INHALER IH PRN (09:09)
[2019-02-12] MEDS: THIAMINE HCL 100 MG TABLET (FP) PO SCH (21:27)
[2019-02-12] MEDS: MELATONIN 5 MG TABLETS PO PRN (21:28)
[2019-02-12] MEDS: IBUPROFEN 400 MG TABLET (FP) PO PRN (21:28)
[2019-02-13] MEDS: HYDROCORTISONE 1% TOPICAL CREAM 30 GM TUBE TP SCH ×3 (07:32→21:39)
[2019-02-13] MEDS: PRENATAL VITAMINS W/ FOLIC ACID TABLET (FP) PO SCH (10:27)
[2019-02-13] MEDS: levETIRAcetam 500 MG TABLET (FP) PO SCH ×2 (10:27→21:38)
[2019-02-13] MEDS: ACETAMINOPHEN 325 MG TABLET (FP) PO PRN (10:27)
[2019-02-13] MEDS ORDERED: PT OWN MED DRAWER 7, Y5N ONE (14:38)
[2019-02-13] MEDS: IBUPROFEN 400 MG TABLET (FP) PO PRN ×2 (14:38→21:37)
[2019-02-13] MEDS: BENZOCAINE 20 % GEL TUBE MM PRN ×2 (14:38→21:39)
[2019-02-13] MEDS: THIAMINE HCL 100 MG TABLET (FP) PO SCH (21:37)
[2019-02-14] MEDS: HYDROCORTISONE 1% TOPICAL CREAM 30 GM TUBE TP SCH ×3 (06:52→21:36)
[2019-02-14] MEDS: PRENATAL VITAMINS W/ FOLIC ACID TABLET (FP) PO SCH (10:24)
[2019-02-14] MEDS: levETIRAcetam 500 MG TABLET (FP) PO SCH ×2 (10:24→21:35)
[2019-02-14] MEDS: ACETAMINOPHEN 325 MG TABLET (FP) PO PRN ×2 (10:25→21:35)
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
[2019-02-14] MEDS: THIAMINE HCL 100 MG TABLET (FP) PO SCH (21:35)
[2019-02-14] MEDS: ARIPiprazole 5 MG TABLET (FP) PO SCH (21:36)
[2019-02-15] MEDS: ACETAMINOPHEN 325 MG TABLET (FP) PO PRN ×3 (02:19→18:26)
[2019-02-15] MEDS: HYDROCORTISONE 1% TOPICAL CREAM 30 GM TUBE TP SCH ×3 (07:30→21:30)
[2019-02-15] MEDS ORDERED: PT OWN MED DRAWER 7, Y5N ONE ×2 (08:51→21:30)
[2019-02-15] MEDS ORDERED: FLUoxetine HCL 10 MG TABLET PO SCH (10:00)
[2019-02-15] MEDS: levETIRAcetam 500 MG TABLET (FP) PO SCH ×2 (10:28→21:29)
[2019-02-15] MEDS: PRENATAL VITAMINS W/ FOLIC ACID TABLET (FP) PO SCH (10:28)
[2019-02-15] MEDS: FLUoxetine HCL 10 MG CAPSULE (FP) PO SCH (11:53)
[2019-02-15] MEDS: MELATONIN 5 MG TABLETS PO PRN (21:29)
[2019-02-15] MEDS: THIAMINE HCL 100 MG TABLET (FP) PO SCH (21:29)
[2019-02-15] MEDS: ARIPiprazole 5 MG TABLET (FP) PO SCH (21:30)
[2019-02-16] MEDS: HYDROCORTISONE 1% TOPICAL CREAM 30 GM TUBE TP SCH ×3 (06:32→21:46)
[2019-02-16] MEDS ORDERED: PT OWN MED DRAWER 7, Y5N ONE ×3 (08:46→20:43)
[2019-02-16] MEDS: PRENATAL VITAMINS W/ FOLIC ACID TABLET (FP) PO SCH (10:24)
[2019-02-16] MEDS: levETIRAcetam 500 MG TABLET (FP) PO SCH ×2 (10:24→21:42)
[2019-02-16] MEDS: FLUoxetine HCL 10 MG CAPSULE (FP) PO SCH (10:25)
[2019-02-16] MEDS: IBUPROFEN 400 MG TABLET (FP) PO PRN (10:26)
[2019-02-16] MEDS: MENTHOL/PHENOL 1 EACH UD MM PRN (10:28)
[2019-02-16] MEDS: ARIPiprazole 5 MG TABLET (FP) PO SCH (21:42)
[2019-02-16] MEDS: ACETAMINOPHEN 325 MG TABLET (FP) PO PRN (21:43)
[2019-02-16] MEDS: MELATONIN 5 MG TABLETS PO PRN (21:43)
[2019-02-16] MEDS: THIAMINE HCL 100 MG TABLET (FP) PO SCH (21:43)
[2019-02-16] MEDS: BENZOCAINE 20 % GEL TUBE MM PRN (21:44)
[2019-02-17] MEDS: HYDROCORTISONE 1% TOPICAL CREAM 30 GM TUBE TP SCH ×3 (06:23→21:19)
[2019-02-17] MEDS ORDERED: PT OWN MED DRAWER 7, Y5N ONE ×3 (08:52→21:19)
[2019-02-17] MEDS: PRENATAL VITAMINS W/ FOLIC ACID TABLET (FP) PO SCH (10:23)
[2019-02-17] MEDS: FLUoxetine HCL 10 MG CAPSULE (FP) PO SCH (10:23)
[2019-02-17] MEDS: levETIRAcetam 500 MG TABLET (FP) PO SCH ×2 (10:23→21:17)
[2019-02-17] MEDS: COLLOIDAL OATMEAL 1 BAR EACH TP PRN (10:44)
[2019-02-17] MEDS: ACETAMINOPHEN 325 MG TABLET (FP) PO PRN (19:52)
[2019-02-17] MEDS: THIAMINE HCL 100 MG TABLET (FP) PO SCH (21:17)
[2019-02-17] MEDS: MELATONIN 5 MG TABLETS PO PRN (21:18)
[2019-02-17] MEDS: ARIPiprazole 5 MG TABLET (FP) PO SCH (21:19)
[2019-02-18] MEDS: IBUPROFEN 400 MG TABLET (FP) PO PRN (01:54)
[2019-02-18] MEDS: HYDROCORTISONE 1% TOPICAL CREAM 30 GM TUBE TP SCH ×3 (07:17→21:11)
[2019-02-18] MEDS ORDERED: PT OWN MED DRAWER 7, Y5N ONE ×3 (08:56→21:10)
[2019-02-18] MEDS: FLUoxetine HCL 10 MG CAPSULE (FP) PO SCH (10:20)
[2019-02-18] MEDS: PRENATAL VITAMINS W/ FOLIC ACID TABLET (FP) PO SCH (10:20)
[2019-02-18] MEDS: levETIRAcetam 500 MG TABLET (FP) PO SCH ×2 (10:20→21:09)
[2019-02-18] MEDS: ALBUTEROL SO4 8 GM HFA INHALER IH PRN (10:22)
[2019-02-18] MEDS: THIAMINE HCL 100 MG TABLET (FP) PO SCH (21:09)
[2019-02-18] MEDS: MELATONIN 5 MG TABLETS PO PRN (21:09)
[2019-02-18] MEDS: ARIPiprazole 5 MG TABLET (FP) PO SCH (21:10)
[2019-02-18] MEDS: ACETAMINOPHEN 325 MG TABLET (FP) PO PRN (22:35)
[2019-02-19] MEDS: IBUPROFEN 400 MG TABLET (FP) PO PRN ×2 (00:31→19:33)
[2019-02-19] MEDS ORDERED: PT OWN MED DRAWER 7, Y5N ONE ×3 (00:32→20:17)
[2019-02-19] MEDS: BENZOCAINE 20 % GEL TUBE MM PRN (00:33)
[2019-02-19] MEDS: HYDROCORTISONE 1% TOPICAL CREAM 30 GM TUBE TP SCH ×3 (06:53→21:07)
[2019-02-19] MEDS: levETIRAcetam 500 MG TABLET (FP) PO SCH ×2 (10:40→21:06)
[2019-02-19] MEDS: FLUoxetine HCL 10 MG CAPSULE (FP) PO SCH (10:41)
[2019-02-19] MEDS: PRENATAL VITAMINS W/ FOLIC ACID TABLET (FP) PO SCH (10:41)
--- NOTE | 2019-02-19 15:52 | PN ---
[facility] Progress Note Note: Patient states she was on medication for appetite stimulant. Forgot name and dose. Patient to contact pharmacy to have list faxed to unit. At this time appetite reported as good by nursing staff. Will follow up once medication list available. Vital Signs Temperature 98.0 F 02/19/19 07:13 Pulse Rate 77 02/19/19 07:13 Respiratory Rate 18 02/19/19 07:13 Blood Pressure 99/69 02/19/19 07:13 O2 Sat by Pulse Oximetry (%)
[2019-02-19] MEDS: MAG HYDROX/AL HYDROX/SIMETH 30 ML UNIT-DOSE CUP PO PRN (19:35)
[2019-02-19] MEDS: THIAMINE HCL 100 MG TABLET (FP) PO SCH (21:06)
[2019-02-19] MEDS: MELATONIN 5 MG TABLETS PO PRN (21:06)
[2019-02-19] MEDS: ARIPiprazole 5 MG TABLET (FP) PO SCH (21:55)
[2019-02-20] MEDS: HYDROCORTISONE 1% TOPICAL CREAM 30 GM TUBE TP SCH ×3 (06:49→21:53)
[2019-02-20] MEDS: MAG HYDROX/AL HYDROX/SIMETH 30 ML UNIT-DOSE CUP PO PRN (06:58)
[2019-02-20] MEDS: MENTHOL/PHENOL 1 EACH UD MM PRN (08:59)
[2019-02-20] MEDS: PRENATAL VITAMINS W/ FOLIC ACID TABLET (FP) PO SCH (10:40)
[2019-02-20] MEDS: FLUoxetine HCL 10 MG CAPSULE (FP) PO SCH (10:40)
[2019-02-20] MEDS: levETIRAcetam 500 MG TABLET (FP) PO SCH ×2 (10:40→21:48)
[2019-02-20] MEDS ORDERED: PT OWN MED DRAWER 7, Y5N ONE ×3 (19:29→21:57)
[2019-02-20] MEDS: THIAMINE HCL 100 MG TABLET (FP) PO SCH (21:48)
[2019-02-20] MEDS: ARIPiprazole 5 MG TABLET (FP) PO SCH (21:52)
[2019-02-20] MEDS: MELATONIN 5 MG TABLETS PO PRN (21:52)
[2019-02-21] MEDS: HYDROCORTISONE 1% TOPICAL CREAM 30 GM TUBE TP SCH ×3 (07:01→21:03)
[2019-02-21] MEDS: PRENATAL VITAMINS W/ FOLIC ACID TABLET (FP) PO SCH (10:40)
[2019-02-21] MEDS: FLUoxetine HCL 10 MG CAPSULE (FP) PO SCH (10:40)
[2019-02-21] MEDS: levETIRAcetam 500 MG TABLET (FP) PO SCH ×2 (10:40→21:02)
[2019-02-21] MEDS: ACETAMINOPHEN 325 MG TABLET (FP) PO PRN (16:49)
[2019-02-21] MEDS ORDERED: PT OWN MED DRAWER 7, Y5N ONE ×2 (18:56→23:24)
[2019-02-21] MEDS: THIAMINE HCL 100 MG TABLET (FP) PO SCH (21:02)
[2019-02-21] MEDS: ARIPiprazole 5 MG TABLET (FP) PO SCH (21:02)
[2019-02-21] MEDS: MAG HYDROX/AL HYDROX/SIMETH 30 ML UNIT-DOSE CUP PO PRN (21:03)
[2019-02-21] MEDS: IBUPROFEN 400 MG TABLET (FP) PO PRN (22:52)
[2019-02-22] MEDS: HYDROCORTISONE 1% TOPICAL CREAM 30 GM TUBE TP SCH (06:21)
[2019-02-22] MEDS: MENTHOL/PHENOL 1 EACH UD MM PRN (06:22)
[2019-02-22 07:30] VITALS: BP 123/90; PULSE 77; TEMP 98
--- NOTE | 2019-02-22 09:10 | PN ---
[facility] Progress Note Note: Patient is discharged today. Scripts for 30 days supply of medications(Prozac 10 mg/day, Abilify 5 mg/hs) are electronically transmitted to [facility] at [address] [place], [place] [id number]
[2019-02-22] MEDS: FLUoxetine HCL 10 MG CAPSULE (FP) PO SCH (09:55)
[2019-02-22] MEDS: levETIRAcetam 500 MG TABLET (FP) PO SCH (09:55)
[2019-02-22] MEDS: PRENATAL VITAMINS W/ FOLIC ACID TABLET (FP) PO SCH (09:56)
--- NOTE | 2019-02-22 10:37 | DS ---
[facility] Rehab Discharge Summary - [facility] Rehab Discharge Summary Admission Date: 02/08/19 Discharge Date: 02/22/19 - History Present History: Alcohol dependence, Cocaine dependence Pertinent Past History: Pt was admitted for detox on 02/03/19. Pt completed detox and was admitted to rehab on 02/08. pt did well and is now going to custodial care at [facility] in [place]. 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 Pt did well in rehab here. Admission to Detox history: "Ms. Bhagat is a 38yo female with alcohol use disorder, cocaine use disorder, and seizures who presents for detox from alcohol. Pt reports drinking 1 pint of liquor daily for 16 years. Her last drink was yesterday afternoon. She reports hx of seizures (has seizure disorder ) but denies hx of blackouts. She states her longest period of sobriety was 9 months and she relapsed in February 2018. She also smokes 3 bags/day of cocaine for the last 4 years. Last use was yesterday. She smokes 2 cigarettes/ day" - Discharge Physical Exam Vital Signs: Vital Signs Temperature 98.0 F 02/22/19 07:28 Pulse Rate 77 02/22/19 07:28 Respiratory Rate 18 02/22/19 07:28 Blood Pressure 123/90 02/22/19 07:28 O2 Sat by Pulse Oximetry (%) Pertinent Admission Physical Exam Findings: Pt is alert and oriented. Grossly nl PE - Treatment Discharge Condition: Discharge condition good - Medication Discharge Medications: Ambulatory Orders Albuterol Sulfate Inhaler - [Ventolin HFA Inhaler -] 2 puff IH Q4H PRN #1 inhaler 02/22/19 Aripiprazole [Abilify -] 5 mg PO HS #30 tablet 02/22/19 Fluoxetine HCl [Prozac -] 10 mg PO DAILY #30 capsule 02/22/19 levETIRAcetam [Keppra -] 500 mg PO BID #60 tablet 02/22/19 - Medication-Assisted Treatment (MAT) Medication-Assisted Treatment (MAT): No - Discharge Instructions Diet, activity, other medical instructions: Diet: Activity: Other medical instructions: - Follow-up Referral Minutes to complete discharge: 30 - AMA Did Patient Leave Against Medical Advice: No
== END 2019-02-22 10:31 | disposition home or self-care (01) | DRG 772 ==
LOC: YASAS 12:02 → Y3E 12:04
PROVIDERS: ADMIT Neuromusculoskeletal Medicine & OMM; ATTEND Neuromusculoskeletal Medicine & OMM
PROC: HZ42ZZZ Group Counseling for Substance Abuse Treatment, Cognitive-Behavioral (ICD-10-PCS; principal; 2019-02-08)
DX: F10.20 Alcohol dependence, uncomplicated (principal); F14.20 Cocaine dependence, uncomplicated; F17.210 Nicotine dependence, cigarettes, uncomplicated; F19.24 Other psychoactive substance dependence with psychoactive substance-induced mood disorder; F19.282 Other psychoactive substance dependence with psychoactive substance-induced sleep disorder; F39 Unspecified mood [affective] disorder; K21.9 Gastro-esophageal reflux disease without esophagitis; G40.909 Epilepsy, unspecified, not intractable, without status epilepticus; J45.909 Unspecified asthma, uncomplicated; Z86.73 Personal history of transient ischemic attack (TIA), and cerebral infarction without residual deficits; Z88.0 Allergy status to penicillin
CPT/HCPCS: 36415; 80177; 81003; 85027; 87389; 90732; G0009